=== PATIENT | male | born 1985 | race Hispanic/Latino ===

== ENCOUNTER 2017-04-27 18:41 | Emergency (ER) | payer OTHER ==
[~2017-04-27] VITALS: Ht 162.6 cm; Wt 72.7 kg
[2017-04-27 18:45] VITALS: BP 100/68; PULSE 65; RESP 16; O2SAT 97
[2017-04-27 19:32] LABS: APPEARANCE,URINE CLEAR (CLEAR,HAZY); COLOR,URINE YELLOW (YELLOW); OCCULT BLOOD,URINE NEGATIVE (NEGATIVE); PH,URINE 6.5 (5.0-8.0); UROBILINOGEN,URINE NORMAL (NORMAL)
[2017-04-27 20:23] LABS: BASOPHILS % (AUTO) 0.5 % (0-3); EOSINOPHILS % (AUTO) 0.7 % (0-5); MONOCYTES % (AUTO) 6.7 % (4-12); Mean Corpuscular Hemoglobin 30.6 pg (27.0-35.0); Mean Corpuscular Volume 86.5 fL (81-100); Platelet Count 207 bil/L (150-400)
[2017-04-27 20:49] LABS: Magnesium 2.3 mg/dL (1.6-2.6)
--- NOTE | 2017-04-27 21:06 | ED.REPORT ---
HPI-Abd Pain M Under 40 Date of Service Apr 27, 2017 ED Provider: Tomas Edwards MD Patient is a 32 year old male who presents to the ED complaining of left upper quadrant abdominal pain onset a week ago. He denies nausea, vomiting, cough or recent injury. Patient reports having normal bowel movements. The patient reports that the pain is exacerbated with movement, especially bending and he describes the pain as a "burning". He states that laying down and holding the area helps relieve the pain. Patient has had similar pain once before a few years ago and had an ultrasound that was unremarkable. The patient's pain then went away but the pain is worse this time. Nursing Notes Stated Complaint: PAIN IN LEFT SIDE OF RIB Chief Complaint: Male Abdominal Pain Nursing Notes Reviewed: Yes Allergies: Coded Allergies: No Known Allergies (Verified Allergy, Unknown, 04/27/17) Scheduled Famotidine (Pepcid) 20 Mg Tablet 20 MG PO BID Scheduled PRN Naproxen (Naprosyn) 500 Mg Tablet 500 MG PO BID PRN PRN For Pain General Time Seen by MD: 21:05 Chief Complaint Abdominal pain Hx Obtained From: Patient Arrived By: Walk-in Sudden in Onset?: Yes Onset Occurred: 1 week ago Symptom Duration: Since onset Location: : LUQ Quality: Burning, Painful Radiation: : Does not radiate Severity: Current: Moderate Associated with: Denies: Constipation, Diarrhea, Fever, Nausea, Vomiting Exacerbated by: Movement Recent Healthcare: No recent hospitalization, Recent doctor visit Similar Sx Previous: Yes Past Medical History Past Medical History none reported Past Surgical History none reported Smoking History Never Smoker Social History Alcohol Use: Denies alcohol use Drug Use: Denies drug use Ambulatory Status Independent Review of Systems Constitutional: Denies: Chills, Fever Respiratory: Denies: Non-productive cough, Shortness of breath GI: Reports: Abdominal pain, Denies: Constipation, Diarrhea, Nausea, Vomiting Complete sys rev & neg: except as marked. Skin: Denies Itching, Denies Rash Physical Exam Initial Vital Signs Vital Signs (First) Date Time Temp Pulse Resp B/P Pulse Ox O2 Delivery O2 Flow Rate FiO2 04/27/17 18:45 36.8 65 16 100/68 97 Room Air Initial VS: Reviewed General/Constitutional: Awake, Alert, No acute distress Respiratory / Chest: Atraumatic, Breath sounds NL, Breath sounds = bilat, No respiratory distress Cardiovascular: Heart rate NL, Regular rhythm, Heart sounds NL Abdomen: Atraumatic, Soft tender over the left rectus abdominis no mass no fluctuance no erythema no rash Back: Atraumatic, Non-tender Head / Eyes: Atraumatic, Normocephalic, PERRL, EOMI Neurologic: Oriented X3, Speech NL, No motor deficits, No sensory deficits Skin: Atraumatic, Color NL, No rash, Warm, Dry Psychiatric: Affect NL, Mood NL Interpretation & Diagnostics Lab Results Interpretation Result Diagram: 04/27/17199904/27/171999 Test 04/27/17 19:06 04/27/17 20:00 Urine Color Yellow (YELLOW) Urine Appearance Clear (CLEAR,HAZY) Urine pH 6.5 (5.0-8.0) Urine Specific [place] 1.025 (1.003-1.035) Urine Protein Negativemg/dL (NEG,TRACE) Urine Glucose (UA) Negativemg/dL (NEGATIVE) Urine Ketones 15mg/dL (NEGATIVE) Urine Occult Blood Negative (NEGATIVE) Urine Nitrite Negative (NEGATIVE) Urine Bilirubin Negative (NEGATIVE) Urine Urobilinogen Normalmg/dL (NORMAL) Urine Leukocyte Esterase Negative (NEGATIVE) Urine RBC 0-2/hpf (0-2) Urine WBC 0-5/hpf (0-5) Urine Epithelial Cells Few/hpf (NONE-MOD) Urine Crystals None seen (NONE SEEN) Urine Bacteria Few/hpf (NONE-FEW) Urine Hyaline Casts None/lpf (NONE) Urine Granular Casts None seen (NONE SEEN) Urine Waxy Casts None seen (NONE SEEN) Urine Red Blood Cell Casts None seen (NONE SEEN) Urine White Blood Cell Casts None seen (NONE SEEN) Urine Mucus Present (None Seen) Urine Trichomonas None seen (NONE SEEN) Urine Yeast None (NONE SEEN) Urinalysis Comment None Urine Culture Reflexed Not indicated White Blood Count 9.7th/mm3 (3.8-10.1) Red Blood Count 4.96mil/mm3 (4.40-5.80) Hemoglobin 15.2g/dL (13.8-17.2) Hematocrit 42.9% (41.0-50.0) Mean Corpuscular Volume 86.5fL (81-100) Mean Corpuscular Hemoglobin 30.6pg (27.0-35.0) Mean Corpuscular Hemoglobin Concent 35.4% (32.0-37.0) Red Cell Distribution Width 12.8% (12.3-15.4) Platelet Count 207bil/L (150-400) Neutrophils (%) (Auto) 69.0% (40-74) Lymphocytes (%) (Auto) 22.9% (14-46) Monocytes (%) (Auto) 6.7% (4-12) Eosinophils (%) (Auto) 0.7% (0-5) Basophils (%) (Auto) 0.5% (0-3) Sodium Level 140mEq/L (134-144) Potassium Level 3.4mEq/L (3.5-5.2) Chloride Level 102mEq/L (97-108) Carbon Dioxide Level 23mmol/L (18-29) Blood Urea Nitrogen 14mg/dL (6-20) Creatinine 0.69mg/dL (0.76-1.27) Estimat Glomerular Filtration Rate 143mL/min (>59) Glucose Level 84mg/dL (60-99) Calcium Level 9.3mg/dL (8.5-10.1) Magnesium Level 2.3mg/dL (1.6-2.6) Total Bilirubin 0.5mg/dL (0.0-1.2) Aspartate Amino Transf (AST/SGOT) 30U/L (0-50) Alanine Aminotransferase (ALT/SGPT) 44U/L (0-44) Alkaline Phosphatase 56U/L (25-150) Total Protein 8.3g/dL (6.4-8.4) Albumin 4.5g/dL (3.4-5.0) Lipase 19U/L (13-60) Re-Eval/Medical Decision Med Decision/Clinical Course 5-year-old with pain in his left upper abdomen that is in the abdominal wall and easily elicitable by superficial palpation. He does recall a specific injury but clearly has strained a muscle previously injured. No indication of any organ dysfunction. Labs are unremarkable. Discharge now stable condition for heat rest Naprosyn and Pepcid follow-up with PCP. Re-Evaluation/Progress : Time of Eval: 21:15 Re-Evaluation/Progress Note: Discussed lab results and plan for discharge. Patient understands and agrees to plan. All questions were addressed. Counseled Regarding: Diagnosis, Lab results, Need for follow-up, When/why to return to ED Patient Discharge & Departure Primary Impression: Muscle strain Additional Impression: Strain of rectus abdominis muscle Encounter type: initial encounter Qualified Code: S39.011A - Strain of muscle, fascia and tendon of abdomen, initial encounter Disposition: Home Discharge Condition All VS Reviewed: Yes Condition: Stable Patient Instructions: Muscle Strain (DC) Additional Instructions: This appears to be a strain of the abdominal muscle. This involves tearing of the muscle tissue or the fibers in the lining of the muscle. These can take weeks to heal, particularly in the abdomen, because it is impossible to rest those muscles totally. Begin Naprosyn twice daily with food. Begin Pepcid twice daily as long as you are on Naprosyn. Apply heat to the area with a heating pad three or four times daily. Where a compression shirt such as an underarmour support shirt or a compression dressing. Follow-up with local physician in the office. If you have no immediate access to a physician, the residency clinic can follow-up. You can also follow up at [facility]. Referrals: [facility] Portions of this note were transcribed by Diana Cordero. I, Dr. Edwards personally performed the history, physical exam and medical decision-making; I reviewed and confirmed the accuracy of the information in the transcribed note. Signed by: Amelie Cruz, 04/27/17 and 2119. copies to: [facility] Tomas Edwards MD Apr 27, 2017 21:06 Arabella Cordero Apr 27, 2017 21:16
[2017-04-27] MEDS ORDERED: FAMO20T PO (21:17)
[2017-04-27] MEDS ORDERED: NAPR500T PO (21:17)
[2017-04-27 21:25] VITALS: BP 116/60; PULSE 66; RESP 20; O2SAT 96
== END 2017-04-27 21:26 | disposition home or self-care (01) ==
LOC: SED 18:41
DX: S39.011A Strain of muscle, fascia and tendon of abdomen, initial encounter (principal); X58.XXXA Exposure to other specified factors, initial encounter; Y93.89 Activity, other specified; Y92.89 Other specified places as the place of occurrence of the external cause; Y99.8 Other external cause status
CPT/HCPCS: 36415; 80053; 81000; 83690; 83735; 85025; 96372; 99284; J1885